=== PATIENT | female | born 1950 | race Caucasian/White ===

== ENCOUNTER 2022-05-21 14:09 | Outpatient (REF) | payer MEDICARE, SELFPAY ==
--- NOTE | ~2022-05-21 | MM_ITS ---
EXAMINATION: MM SCREENING DIGITAL BREAST TOMOSYNTHESIS, BILATERAL CLINICAL INFORMATION: Screening. Asymptomatic. The lifetime risk of breast cancer based on the Tyrer-Cuzick Model is 4%. COMPARISON: Mammography: None TECHNIQUE: Digital breast tomosynthesis is performed in both the craniocaudal and mediolateral oblique views along with computer-aided detection (CAD). Synthesized 2D images are generated from the tomosynthesis. FINDINGS: There are scattered areas of fibroglandular density (ACR BI-RADS breast composition Category b). There are no significant masses, abnormal calcifications, or other abnormalities. MM/MM tomosynthesis screening BI IMPRESSION: No mammographic evidence of malignancy. ASSESSMENT: BI-RADS 1: Negative RECOMMENDATION: Routine annual mammography screening. This patient's information was entered into a reminder system with a target due date for their next mammogram.
== END 2022-05-21 14:10 | disposition home or self-care (01) ==
LOC: HO.MAMMO 14:09
PROVIDERS: PCP Internal Medicine; Visit Provider Internal Medicine
DX: Z12.31 Encounter for screening mammogram for malignant neoplasm of breast (principal)
CPT/HCPCS: 77063; 77067

== ENCOUNTER 2023-04-06 11:09 | Outpatient (REF) | payer MEDICARE, SELFPAY ==
--- NOTE | ~2023-04-06 | XR_ITS ---
EXAMINATION: XR ANKLE, LEFT CLINICAL INFORMATION: Acute left ankle pain COMPARISON: None available. TECHNIQUE: AP, lateral, and mortise views of the left ankle. FINDINGS: Avulsion fracture identified distal fibula. Diffuse ankle swelling. Mortise remains intact with no definite medial clear space widening. XR/XR ankle LT 2V IMPRESSION: Fractured lateral malleolus with soft tissue swelling.
== END 2023-04-06 11:10 | disposition home or self-care (01) ==
LOC: HO.XRAY 11:09
PROVIDERS: PCP Internal Medicine; Visit Provider Internal Medicine
DX: M25.572 Pain in left ankle and joints of left foot (principal)
CPT/HCPCS: 73600

== ENCOUNTER → 2023-06-23 09:00 | Outpatient (BNV) | payer MEDICARE, SELFPAY | PROVIDERS: PCP Internal Medicine; Visit Provider Radiology Diagnostic Radiology | DX: Z12.31 Encounter for screening mammogram for malignant neoplasm of breast (principal) | CPT/HCPCS: 77063; 77067 ==

== ENCOUNTER 2023-06-23 09:14 | Outpatient (REF) | payer MEDICARE, SELFPAY ==
--- NOTE | ~2023-06-23 | MM_ITS ---
EXAMINATION: MM SCREENING DIGITAL BREAST TOMOSYNTHESIS, BILATERAL CLINICAL INFORMATION: Screening. Asymptomatic. COMPARISON: Mammography: This study is compared with prior exams dating back to 2021. TECHNIQUE: Digital breast tomosynthesis is performed in both the craniocaudal and mediolateral oblique views along with computer-aided detection (CAD). Synthesized 2D images are generated from the tomosynthesis. FINDINGS: The breasts are almost entirely fatty (ACR BI-RADS breast composition Category a). There are no significant masses, abnormal calcifications, or other abnormalities. MM/MM tomosynthesis screening BI IMPRESSION: No mammographic evidence of malignancy. ASSESSMENT: BI-RADS BI-RADS 1 - Negative RECOMMENDATION: Routine annual mammography screening. 1 year F/U This examination should not preclude the clinical evaluation of a suspicious palpable abnormality. This patient's information was entered into a reminder system with a target due date for their next mammogram.
== END 2023-06-23 09:15 | disposition home or self-care (01) ==
LOC: HO.MAMMO 09:14
PROVIDERS: PCP Internal Medicine; Visit Provider Internal Medicine
DX: Z12.31 Encounter for screening mammogram for malignant neoplasm of breast (principal)
CPT/HCPCS: 77063; 77067

== ENCOUNTER 2024-06-28 09:58 | Outpatient (REF) | payer MEDICARE, SELFPAY ==
--- NOTE | ~2024-06-28 | MM_ITS ---
EXAMINATION: MM SCREENING DIGITAL BREAST TOMOSYNTHESIS, BILATERAL CLINICAL INFORMATION: Screening. Asymptomatic. COMPARISON: Mammography: Comparison is made with available priors TECHNIQUE: Digital breast mammography with tomosynthesis is performed in both the craniocaudal and mediolateral oblique views along with computer-aided detection (CAD). FINDINGS: There are scattered areas of fibroglandular density (ACR BI-RADS breast composition Category b). There are no significant masses, abnormal calcifications, or other abnormalities. MM/MM tomosynthesis screening BI IMPRESSION: No mammographic evidence of malignancy. ASSESSMENT: BI-RADS BI-RADS 1 - Negative RECOMMENDATION: Routine annual mammography screening. 1 year F/U This examination should not preclude the clinical evaluation of a suspicious palpable abnormality. This patient's information was entered into a reminder system with a target due date for their next mammogram. Electronically signed by: Rosa Maria Lackey DO 07/07/2024 01:49 PM EDT
== END 2024-06-28 09:59 | disposition home or self-care (01) ==
LOC: HO.MAMMO 09:58
PROVIDERS: PCP Internal Medicine; Visit Provider Internal Medicine
DX: Z12.31 Encounter for screening mammogram for malignant neoplasm of breast (principal)
CPT/HCPCS: 77063; 77067

== ENCOUNTER → 2024-06-28 10:00 | Outpatient (BNV) | payer MEDICARE, SELFPAY | PROVIDERS: PCP Internal Medicine; Visit Provider Internal Medicine | DX: Z12.31 Encounter for screening mammogram for malignant neoplasm of breast (principal) | CPT/HCPCS: 77063; 77067 ==

== ENCOUNTER 2025-04-30 15:07 | Outpatient (REF) | payer MEDICARE, SELFPAY ==
--- OUTSIDE RECORDS SUMMARY | 2025-04-30 15:12 | XMS_ITS | Encounter Summary ---
Author Organization [employer] Address [address] [place] [address] 7 [place] [address] Care Team Providers Care Wood Processing Worker Name Role Phone Catalina Fitzgerald MD Primary Care Provider [phone] Encounter Details Date Type Department Care Team (Late st Contact Info) Description 12/04/2022 Orders Only [facility] P[facility] [address] [place] [address] Catalina Fitzgerald MD [address] [place] [address] Irritable bowel syndrome with diarrhea (Primary Dx) Social History Tobacco Use Types Packs/Day Years Used Date Smoking Tobacco: Never Assessed Comments Unknown Sex and Gender Information Value Date Recorded Sex Assigned at Female 07/27/2022 10:34 AM EDT Legal Sex Female 10:34 AM EDT Gender Identity Female 07/27/2022 10:34 AM EDT Sexual Orientation Don't know 07/27/2022 10 :34 AM EDT documented as of this encounter Plan of Treatment Not on file documented as of this encounter Visit Diagnoses Diagnosis Irritable bowel syndrome with diarrhea- Primary Irritable bowel syndrome documented in this encounter Care Teams Wood Processing Worker Relationship Specialty Start Date End Date Catalina Fitzgerald MD [address] [place] [address] PCP - General Internal Medicine 06/01/18 documented as of this encounter
--- OUTSIDE RECORDS SUMMARY | 2025-04-30 15:12 | XMS_ITS | Encounter Summary ---
Author Organization [facility] Address [address] [place] [address] Care Team Providers Care Siding Installer Name Role Phone Catalina Fitzgerald MD Primary Care Provider [phone]- [phone] Clarissa Dalton MD Unavailable Encounter Details Date Type Department Care Team (Late st Contact Info) Description 07/27/[address] [facility] Neuro[facility] [address] [place] [id number] Mark Cary MD Social History Tobacco Use Types Packs/Day Years Used Date Smoking Tobacco: Former Cigarettes Q uit: 1970 Smokeless Tobacco: Never Alcohol Use Standard Drinks/Week Comments Yes 0 (1 standard drink = 0.6 oz pur e alcohol) Comments Unknown Sex and Gender Information Value Date Recorded Sex Assigned at Not on file Legal Sex Female 6:26 PM EST Gender Identity Not on file Sexual Orientation Not on file documented as of this encounter Plan of Treatment Not on file documented as of this encounter Visit Diagnoses Not on filedocumented in this encounter Care Teams Siding Installer Relationship Specialty Start Date End Date Catalina Fitzgerald MD [address] [place] [id number] PCP - General General Medicine 07/12/19 Clarissa Dalton MD [address] [place] [address] [place] [address] Gastroenterology 06/03/21 documented as of this encounter
--- OUTSIDE RECORDS SUMMARY | 2025-04-30 15:12 | XMS_ITS ---
Author Name [facility] Organization Unknown History of Medication Use Medication Directions Dispensed Refills Start Date End Date Stat us amLODIPine (NORVASC) 5 MG tablet [The details of the medication are not available because there are pending changes by a home health clinician.] 07/23/2019 active lamoTRIgine (LaMICtal) 200 MG tablet Take 1 tablet (200 mg total) by mouth daily. Do not start before July 23, 2019. 07/23/2019 active miconazole (ZEASORB-AF) 2 % powder Apply topically 2 (two) times a day. 07/22/2019 active lithium carbonate (LITHOBID) 300 MG 12 hr CR tablet Take 300 mg by mouth 2 (two) times a day. 06/27/2019 active levothyroxine (Synthroid) 88 MCG tablet Take 88 mcg by mouth daily on an empty stomach. active Allergies Allergen Reaction Severity Comment Documented Date Source Statu s ADHESIVES/TAPE OTHER (SEE COMMENTS) . 07/27/2019 [facility] active SULFA ANTIBIOTICS OTHER (SEE COMMENTS) 8 [facility] active CODEINE UNKNOWN/PATIENT AND FAMILY UNABLE TO DEFINE 06/14/2015 [facility] active Problems Problem Status Onset Date Problem Type Date of Resoluti on Source Bipolar affective disorder in remission active 2019-07-17 ProblemAct [facility] Neurocognitive deficits active 2019-07-17 ProblemAct [facility] Cerebral ventriculomegaly active 2019-07-27 ProblemAct [facility] Altered mental status active 2019-07-12 ProblemAct [facility] Immunizations Vaccine Date Source Lot Number Status Influenza Inactivated/Split Preservative Free IM 07/20/2019 [facility] [id number] completed Care Team Organization Name Specialty Phone Email Start Date End Da [email or web address] [facility], [facility] ALFIE [facility], Primary Care 06/19/2021 05/15/2024
--- OUTSIDE RECORDS SUMMARY | 2025-04-30 15:12 | XMS_ITS | Clinical Summary ---
Author Organization [facility] Address [address] [place] [address] Care Team Providers Care Drywall Sander Name Role Phone Catalina Fitzgerald MD Primary Care Provider [phone] Surgical History Surgery Date Site/Laterality Comments APPENDECTOMY PROCEDURE: HISTORICAL APPENDECTOMY OTHER SURGICAL HISTORY 07/28/2008 PROCEDURE: LA OPTX PERIARTICULAR FRACTURE &/DISLOCATION ELBO; COMMENT: L wrist/elbow dislocation, cast for 3 months TUBAL LIGATION 1977 PROCEDURE: HISTORICAL TUBAL LIGATION APPENDECTOMY 1966 PROCEDURE: LA APPENDECTOMY HYSTERECTOMY 1986 PROCEDURE: HISTORICAL HYSTERECTOMY; COMMENT: abnormal uterine bleeding; RSO was also done Medical History Medical History Date Comments Bipolar 1 disorder ([facility] V24, [facility] V28) 06/21/2019 DX:Bipolar 1 disorder (HCC) Hydrocephaly (CMS/HCC V24, CMS/[facility] V28) 2014 DX:Hydrocephaly (HCC) Allergic rhinitis 10/13/2012 DX:Allergic rh initis Cerebellar ataxia (CMS/[facility] V 24, [facility] V28) 08/05/2016 DX:Cerebellar ataxia ([facility]) Depression 01/21/2016 DX:Depression; C OMMENT: Comments: DR SÁNCHEZ AND SEE EVERY 3 MONTHS Fibromyalgia 03/01/2017 DX:Fibromyalgia Gastroesophageal reflux disease 08/05/2016 DX:Gastroesophageal reflux disease Hypercholesterolemia 08/02/2017 DX:Hypercho lesterolemia Hypertension 08/02/2017 DX:Hypertension Hypothyroidism 08/02/2017 DX:Hypothyroidis m Insomnia 02/02/2017 DX:Insomnia Migraine headache 05/24/2015 DX:Migraine he adache Urinary incontinence 12/13/2015 DX:Urinary incontinence Vitamin D deficiency 10/03/2013 DX:Vitamin D deficiency Family History Medical History Relation Name Comments Prostate cancer Father Stroke Father Other: heawrt disease Maternal Grandfather Breast cancer Maternal Grandmother Other: alzheimers Mother Other: heart disease Mother Relation Name Status Comments Brother Alive Daughter Alive Father (Age 103) Maternal Grandfather Maternal Grandmother Mother Paternal Grandfather Paternal Grandmother Sister Alive Son 1 Alive Son 2 Alive Social History Tobacco Use Types Packs/Day Years Used Date Smoking Tobacco: Never Smokeless Tobacco: Never Alcohol Use Standard Drinks/Week Comments No 0 (1 standard drink = 0.6 oz pur e alcohol) Comments Unknown Sex and Gender Information Value Date Recorded Sex Assigned at Not on file Legal Sex Female 6:51 PM EST Gender Identity Not on file Sexual Orientation Not on file Obstetrics History Plan of Treatment Health Maintenance Due Date Last Done Comments DTaP,Tdap,and Td Vaccines (1 - Tdap) 1968 Zoster Vaccines (1 of 2) 1999 Pneumococcal Vaccine: 50+ Years (2 of 2 - PPSV23) 08/05/2017 08/05/2016 Cholesterol Screening (Lipid Panel) 08/29/2022 Falls Risk Assessment 08/29/2022 Hepatitis C Screening 08/29/2022 Social Influencers of Health Screening 08/29/2022 Hypertension/CHF/CAD Annual BMP Blood Test 09/08/2022 07/07/2019, 07/07/2019, 07/06/2019, Additional history exists RSV Immunization Adult Patients (1 - 1-dose 75+ series) 2024 COVID-19 Vaccine ( season) 2024 Depression Screening 09/27/2024 Influenza Vaccine (#1) 2025 07/08/2019 Osteoporosis Screening (Bone Density Screening) 06/24/2027 06/24/2017 Breast Cancer Screening Discontinued 07/15/2018, 05/13 HIB Vaccines Aged Out No longer eligi ble based on patient's age to complete this topic HPV Vaccines Aged Out No longer eligi ble based on patient's age to complete this topic Hepatitis A Vaccines Aged Out No long er eligible based on patient's age to complete this topic Hepatitis B Vaccines Aged Out No long er eligible based on patient's age to complete this topic IPV Vaccines Aged Out No longer eligi ble based on patient's age to complete this topic MMR Vaccines Aged Out No longer eligi ble based on patient's age to complete this topic Meningococcal ACWY Vaccine Aged Out N o longer eligible based on patient's age to complete this topic Meningococcal B Vaccine Aged Out No l onger eligible based on patient's age to complete this topic RSV Immunization Patients Under 20 months Aged Out No longer eligible based on patient's age to complete this topic Varicella Vaccines Aged Out No longer eligible based on patient's age to complete this topic Procedures Procedure Name Priority Date/Time Associated Diagnosis Comments SCR MAMMO BI INCL CAD Routine 07/15/2018 2:34 PM EDT Encounter for screening mammogram for malignant neoplasm of breast DXA BONE DENSITY STUDY 1+ SITS AXIAL SKEL Routine 06/24/2017 9:24 AM EDT Menopausal and female climacteric states from Last 3 Months or Most Recently Relevant to Health Maintenance Results * SCR MAMMO BI INCL CAD (07/15/2018 2:34 PM EDT) Anatomical Region Laterality Modality Radiographic Olivia ging 05/13/2017 3:21 PM EDT Narrative 07/15/2018 3:15 PM EDT This is a summary report. The complete report is available in the patient's medical record. If you cannot access the medical record, please contact the sending organization for a detailed fax or copy. Full field digital screening mammography, reviewed with CAD and compared to previous. The breasts are composed of fatty and fibroglandular tissue. No suspicious mass, architectural distortion or suspicious calcifications are identified. IMPRESSION: : No mammographic evidence of malignancy. BIRADS 1-Negative; N. 5 year breast cancer risk assessment 1.5 % Lifetime breast cancer risk assessment 4.8 % Breast cancer risk category Low (<15%) Procedure Note Lottie James, DO - 09/15/2022 This is a summary report. The complete report is available in thepatient's medical record. If you cannot access the medical record, pleasecontact the sending organization for a detailed fax or copy. Full field digital screening mammography, reviewed with CAD and comparedto previous. The breasts are composed of fatty and fibroglandular tissue.No suspicious mass, architectural distortion or suspicious calcificationsare identified. IMPRESSION: : No mammographic evidence of malignancy. BIRADS 1-Negative; N. 5 year breast cancer risk assessment 1.5 % Lifetime breast cancer risk assessment 4.8 % Breast cancer risk category Low (<15%) Mark Conti MD IMG XR PROCEDURES Final Result * DXA BONE DENSITY STUDY 1+ SITS AXIAL SKEL (06/24/2017 9:24 AM EDT) Anatomical Region Laterality Modality Bone Densitometr y 05/21/2017 11:4 4 AM EDT Narrative 06/24/2017 5:16 PM EDT BONE DENSITY Lumbar Spine T-score is +0.1 (SD relative to 20-29 y/o adult) Z-score is +2.1 (SD relative to age matched peers) This is normal by criteria defined by the WHO. Left Hip T-score is -1.5 Z-score is +0.2 This is consistent with osteopenia by criteria defined by the WHO. Impression: Based on the World Health Organization criteria, Camelia Henriquez should be classified as having osteopenia. This patient has a 9.7% risk of major osteoporotic fracture and a 1.2% risk of hip fracture over the next 10 years. (World Health Organization Fracture Risk Assessment) [facility] Department of Internal Medicine recommends using National Osteoporosis Foundation (NOF) guidelines in treatment decisions related to osteoporosis. NOF guidelines suggest considering treatment for postmenopausal women and men aged 50 or older presenting with the following: History of hip or vertebral fracture. T-score less than or equal to -2.5 (DXA) at the femoral neck, total hip, or spine, after appropriate evaluation to exclude secondary causes. Low bone mass (T-score between -1.0 and -2.5 at the femoral neck or spine) AND a 10-year probability of a hip fracture greater than or equal to 3% OR a 10-year probability of a major osteoporosis-related fracture greater than or equal to 20% based on the [place]-adapted WHO algorithm Please note that all treatment decisions require clinical judgment and consideration of individual patient factors, including patient preferences, co-morbidities, previous drug use, risk factors not captured in the FRAX model (e.g., frailty, falls, vitamin D deficiency, increased bone turnover, interval significant decline in bone density) and possible under- or over-estimation of fracture risk by FRAX. Procedure Note Chelle Rizo MD - 10/29/2023 BONE DENSITY Lumbar Spine T-score is +0.1 (SD relative to 20-29 y/o adult) Z-score is +2.1 (SD relative to age matched peers) This is normal by criteria defined by the WHO. Left Hip T-score is -1.5 Z-score is +0.2 This is consistent with osteopenia by criteria defined by the WHO. Impression: Based on the World Health Organization criteria, Camelia Henriquez should beclassified as having osteopenia. This patient has a 9.7% risk of majorosteoporotic fracture and a 1.2% risk of hip fracture over the next 10years. (World Health Organization Fracture Risk Assessment) [facility] Department of Internal Medicine recommendsusing National Osteoporosis Foundation (NOF) guidelines in treatmentdecisions related to osteoporosis. NOF guidelines suggest consideringtreatment for postmenopausal women and men aged 50 or older presentingwith the following: History of hip or vertebral fracture. T-score less than or equal to -2.5 (DXA) at the femoral neck, total hip,or spine, after appropriate evaluation to exclude secondary causes. Low bone mass (T-score between -1.0 and -2.5 at the femoral neck or spine)AND a 10-year probability of a hip fracture greater than or equal to 3% ORa 10-year probability of a major osteoporosis-related fracture greaterthan or equal to 20% based on the [place]-adapted WHO algorithm Please note that all treatment decisions require clinical judgment andconsideration of individual patient factors, including patientpreferences, co-morbidities, previous drug use, risk factors not capturedin the FRAX model (e.g., frailty, falls, vitamin D deficiency, increasedbone turnover, interval significant decline in bone density) and possibleunder- or over-estimation of fracture risk by FRAX. Mark Conti MD IMG DXA PROCEDURES Final Result from Last 3 Months or Most Recently Relevant to Health Maintenance Advance Directives Documents on File Type Date Recorded Patient Element Winding Machine Tender Expl anation Health Care Decision (hx) 12/25/2011 AD JARAMILLO DIRECTIVE Health Care Decision (hx) 12/25/2011 AD JARAMILLO DIRECTIVE Care Teams Drywall Sander Relationship Specialty Start Date End Date Catalina Fitzgerald MD [address] [place] [address] PCP - General Internal Medicine 04/11/19
--- OUTSIDE RECORDS SUMMARY | 2025-04-30 15:12 | XMS_ITS | Clinical Summary ---
Author Organization [facility] Address [address] [place] [address] Care Team Providers Care Manager Fixed Income Name Role Phone Catalina Fitzgerald MD Primary Care Provider +1 -[phone] Allergies No known active allergies Medications Medication Sig Dispensed Refills Start Date End Date Status LAMOTRIGINE PO Take 200 mg by mouth 2 (two) times a day. 0 Active LEVOTHYROXINE SODIUM PO Take 88 mcg by mouth daily. 0 Active acetaminophen (TYLENOL) 325 MG tablet Take 2 tablets (650 mg total) by mouth every 6 (six) hours as needed. 120 tablet 1 07/08/2019 Active clonazePAM (KlonoPIN) 0.5 MG tablet Take 1 tablet (0.5 mg total) by mouth 2 (two) times a day as needed (anxiety). 60 tablet 0 07/08/2019 Active meclizine (ANTIVERT) 25 MG tablet Take 1 tablet (25 mg total) by mouth 3 (three) times a day as needed. 30 tablet 0 07/08/2019 Active lithium carbonate 300 MG tablet Take 1 tablet (300 mg total) by mouth 2 (two) times a day with meals. 90 tablet 1 07/08/2019 Active metoclopramide (REGLAN) tablet 10 mg Take 1 tablet (10 mg total) by mouth 3 (three) times a day as needed. 30 tablet 0 07/08/2019 Active Active Problems Problem Noted Date Diagnosed Date Dizziness 07/07/2019 Acute encephalopathy 07/06/2019 Immunizations Name Administration Dates Next Due Influenza Quad (Fluarix/Fluz one/FluLaval) 0.5mL (SD-IIV4) 07/08/2019 Social History Tobacco Use Types Packs/Day Years Used Date Smoking Tobacco: Former Smokeless Tobacco: Never Alcohol Use Standard Drinks/Week Comments No 0 (1 standard drink = 0.6 oz pur e alcohol) Sex and Gender Information Value Date Recorded Sex Assigned at Female 07/06/2019 3:42 PM EDT Gender Identity Not on file Sexual Orientation Not on file Last Filed Vital Signs Vital Sign Reading Time Taken Comments Blood Pressure 140/65 07/08/2019 11:25 AM EDT Pulse 62 07/08/2019 11:25 AM EDT Temperature 36.5 C (97.7 F) 07/08/2019 11:25 AM EDT Respiratory Rate 16 07/08/2019 11:25 AM EDT Oxygen Saturation 97% 07/08/2019 11:25 AM EDT Inhaled Oxygen Concentration - - Weight 71.8 kg (158 lb 4.6 oz) 07/08/2019 5:33 A M EDT Height 157.5 cm (5' 2 ) 07/07/2019 1:32 PM EDT Body Mass Index 28.95 07/07/2019 1:32 PM EDT Plan of Treatment Health Maintenance Due Date Last Done Comments Hepatitis C Screening 1950 COVID-19 Vaccine (#1) 1949 Depression Screening 1961 Preventative Health Evaluation 1967 DTap / Tdap / Td (1 - Tdap) 1968 Shingrix-Zoster Vaccine (1 of 2) 1999 Fall Risk Assessment 2014 Osteoporosis Screening (DEXA Scan) 2014 Pneumococcal Vaccine (2 of 2 - PPSV23 or PCV20) 08/05/2017 08/05/2016 RSV Adult > 60+ Yrs or Pregn ant (1 - 1-dose 75+ series) 2024 Influenza Vaccine (#1) 2025 07/08/2019 Hepatitis B Vaccines Aged Out No long er eligible based on patient's age to complete this topic RSV Ped < 20 months Aged Out No longe r eligible based on patient's age to complete this topic Advance Directives For more information, please contact: [phone] Documents on File Type Date Recorded Patient Acid Changer Expl anation Power of Pedigree Tracer 08/28/2015 3:25 PM Latest Code Status on File Code Status Date Activated Date Inactivated Comments Full Code 07/06/2019 7:08 PM 07/08/2019 7:16 PM Thi s code status was ascertained in the following way: discussed. Care Teams Manager Fixed Income Relationship Specialty Start Date End Date Catalina Fitzgreald MD [address] [place] [phone] PCP - General Internal Medicine 07/06/19
[2025-04-30 16:14] LABS: MANUAL DIFF FLAG NO
[2025-04-30 16:25] LABS: Hematocrit 42.6 % (37.0-47.0); Hemoglobin 13.4 g/dl (12.0-16.0); Imm Gran Abs Auto 0.02 X10*3/uL (0.00-0.03); Imm Gran Pct Auto 0.3 % (0.0-0.4); Lymphocytes Absolute Auto 1.9 X10*3/uL (1.2-4.9); Mean Corpuscular HGB Conc 31.5 g/dl (31.0-35.0); Mean Corpuscular Hemoglobin 29.5 pg (27.0-33.0); Mean Corpuscular Volume 93.6 fL (80.0-98.0); NRBC Abs Auto 0.000 X10*3/uL (0.0-0.012); NRBC Pct Auto 0.0 /100WBC (0.0-0.2); Platelet Count 221 X10*3/uL (160-400); Red Blood Count 4.55 X10*6/uL (4.20-5.50); White Blood Count 6.7 X10*3/uL (4.8-10.8)
[2025-04-30 16:39] LABS: Alanine Aminotransferase 26 U/L (0-31); Albumin Level 4.4 g/dL (3.5-5.0); Alkaline Phosphatase 68 U/L (39-117); Anion Gap 10 (12-20); Aspartate Amino Transferase 26 U/L (5-31); Blood Urea Nitrogen 11 mg/dL (9-16); Calcium 9.4 mg/dL (8.4-10.2); Carbon Dioxide 29 mmol/L (22-29); Chloride 108 mmol/L (96-108); Estimated Glomerular Filt Rate > 60; Magnesium 2.2 mg/dL (1.6-2.6); Potassium 4.6 mmol/L (3.3-5.1); Sodium 142 mmol/L (135-145); Total Protein 6.7 g/dL (6.5-8.0)
== END 2025-04-30 15:08 | disposition home or self-care (01) ==
LOC: HO.HHCL 15:07
PROVIDERS: PCP Internal Medicine; Visit Provider Internal Medicine
DX: G93.89 Other specified disorders of brain (principal); E03.9 Hypothyroidism, unspecified; R42 Dizziness and giddiness; R29.818 Other symptoms and signs involving the nervous system; R41.89 Other symptoms and signs involving cognitive functions and awareness
CPT/HCPCS: 36415; 80053; 83735; 84443; 85025